=== PATIENT | male | born 1940 | race Caucasian/White ===

== ENCOUNTER 2017-11-21 12:17 | Emergency (ER) | payer MEDICARE, BC ==
[~2017-11-21] VITALS: Ht 177.8 cm; Wt 93.0 kg
[~2017-11-21 12:17] MED LIST: AMLO5 PO; ASPI325 PO; ASPI325EC PO; ASPI81CH PO; CLOP75 PO; ESCI10 PO; ESOM20 PO; GLUCHON PO; ISOMON30 PO; Keflex500 MG PO; METO25ER PO; METO50 PO; METO50ER PO; MULVITMINF PO; NORT25 PO; NORT75 PO; RAMI5 PO; SILD50TA PO; TEMA15 PO; [UNRECOGNIZED DRUG - OTHER] PO
[2017-11-21] MEDS ORDERED: Monodox100 MG PO (12:53)
== END 2017-11-21 13:22 | disposition home or self-care (01) ==
LOC: ER 12:17
DX: L03.114 Cellulitis of left upper limb (principal); Z88.5 Allergy status to narcotic agent; Z79.899 Other long term (current) drug therapy; Z79.82 Long term (current) use of aspirin; Z79.2 Long term (current) use of antibiotics; Z87.891 Personal history of nicotine dependence
CPT/HCPCS: 90471; 90714; 99282

== ENCOUNTER 2017-12-10 16:33 | Emergency (ER) | payer MEDICARE, BC ==
[~2017-12-10] VITALS: Ht 177.8 cm; Wt 93.0 kg
[~2017-12-10 16:33] MED LIST changes: +Monodox100 MG PO
[2017-12-10] MEDS ORDERED: Clindamycin HC300 MG PO (17:22)
== END 2017-12-10 17:33 | disposition home or self-care (01) ==
LOC: ER 16:33
DX: L03.114 Cellulitis of left upper limb (principal); M70.22 Olecranon bursitis, left elbow; Z88.5 Allergy status to narcotic agent; Z79.899 Other long term (current) drug therapy; Z79.82 Long term (current) use of aspirin; Z79.01 Long term (current) use of anticoagulants; Z87.891 Personal history of nicotine dependence
CPT/HCPCS: 99282

== ENCOUNTER 2017-12-29 13:22 | Emergency (ER) | payer MEDICARE, BC ==
[~2017-12-29] VITALS: Ht 177.8 cm; Wt 93.0 kg
[~2017-12-29 13:22] MED LIST changes: +Clindamycin HC300 MG PO
== END 2017-12-29 14:20 | disposition home or self-care (01) ==
LOC: ER 13:22
DX: S61.210A Laceration without foreign body of right index finger without damage to nail, initial encounter (principal); Z79.01 Long term (current) use of anticoagulants; Z88.5 Allergy status to narcotic agent; Z79.899 Other long term (current) drug therapy; Z79.82 Long term (current) use of aspirin; Z87.891 Personal history of nicotine dependence; W27.4XXA Contact with kitchen utensil, initial encounter
CPT/HCPCS: 12001; 99282

== ENCOUNTER 2025-02-28 11:13 | Emergency (ER) | payer MEDICARE ==
[~2025-02-28] VITALS: Ht 182.9 cm; Wt 74.8 kg
[2025-02-28] MEDS ORDERED: Lidocaine 4% 1 Patch TOP ONE (13:55)
[2025-02-28 14:42] VITALS: BP 117/70
[2025-02-28] MEDS ORDERED: LIDO700A20 TOP (14:47)
[2025-02-28] MEDS ORDERED: Percocet 5-3251 EACH PO (14:47)
== END 2025-02-28 15:03 | disposition home or self-care (01) ==
LOC: ER 11:13
DX: S22.32XA Fracture of one rib, left side, initial encounter for closed fracture (principal); S09.90XA Unspecified injury of head, initial encounter; Z59.89 Other problems related to housing and economic circumstances; Z88.5 Allergy status to narcotic agent; Z79.899 Other long term (current) drug therapy; Z79.82 Long term (current) use of aspirin; Z79.2 Long term (current) use of antibiotics; Z87.891 Personal history of nicotine dependence; W18.30XA Fall on same level, unspecified, initial encounter
CPT/HCPCS: 70450; 71046; 99284-25; A9270